=== PATIENT | female | born 1985 | race Caucasian/White ===

== ENCOUNTER 2023-12-26 10:40 | Emergency (ER) | payer OTHER, SELFPAY ==
[2023-12-26 10:46] VITALS: BP 116/66; PULSE 83; RESP 18; TEMP 36.9; O2SAT 98; BMI 31.2
--- NOTE | 2023-12-26 11:10 | ECG_ITS ---
[facility] Test Date: 2023-12-26 Pat Name: SHARI PLASCENCIA Department: Room: - Gender: Female [employer] Forming Machine Operator: : 1985 Requested By: RENEE BAUER Order Number: [id number] Reading MD: SRIDHAR TIWARI Measurements Intervals [place] Rate: 71 P: -13 SC: 116 QRS: 29 QRSD: 84 T: 28 QT: 368 QTc: 391 Interpretive Statements 1100 Sinus rhythm 2210 Short SC interval 9150 abnormal ECG No previous ECG available for comparison Electronically Signed On 12-26-2023 14:27:06 EST by SRIDHAR TIWARI
--- NOTE | 2023-12-26 11:10 | ED.FEMALEGU1 ---
HPI - Female Genitourinary General Chief complaint: Urogenital-Female Stated complaint: UROGENITAL-FEMALE/DIZZINESS Time Seen by Provider: 12/26/23 11:00 Source: patient Mode of arrival: walk-in History of Present Illness HPI Narrative[age] female presents for heavy vaginal bleeding and near-syncope. This period started two days ago and was much heavier than typical. Last night she had some severe low abdominal pains which wrapped around to her back bilaterally and she was sitting on the toilet and almost passed out. 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 She tried to get into see her [employer] today but was unable because they didn't have any appointments available. No fever, no vomiting. Related Data Home Medications Medication Instructions Recorded Confirmed levothyroxine 50 mcg tablet 50 mcg PO DAILY 12/26/23 12/26/23 paroxetine HCl 30 mg tablet 30 mg PO DAILY 12/26/23 12/26/23 Allergies Allergy/AdvReac Type Severity Reaction Status Date / Time venlafaxine [From Effexor] AdvReac Severe Hives Verified 12/26/23 10:52 IV contrast dye Allergy Severe Anaphylaxis Uncoded 12/26/23 10:52 Review of Systems ROS Narrative A ten point review of systems is negative except as noted above. Exam Narrative Exam Narrative: Nurses note and vital signs reviewed and patient is not hypoxic. General: The patient appears well and in no apparent distress. Patient is resting comfortably on cart. Skin: Warm, dry, slight pallor noted. There is no rash noted. Head: Normocephalic, atraumatic Eye: Normal conjunctiva, no drainage Ears, Nose, Mouth, and Throat: oral mucosa is moist. Nares patent. Cardiovascular: Regular Rate and Rhythm Respiratory: Patient is in no distress, no accessory muscle use, lungs are clear to auscultation, no wheezing, rales or rhonchi Back: non-tender GI: minimal tenderness in the left lower quadrant. The rest of her abdomen is nontender. Musculoskeletal: The patient has no evidence of calf tenderness, no pitting edema, symmetrical pulses noted bilaterally Neurological: A&O, normal speech Psychiatric: Cooperative Constitutional Vital Signs, click to edit/add: Last Vital Signs Temp 98.5 F 12/26/23 10:46 Pulse 83 12/26/23 10:46 Resp 18 12/26/23 10:46 BP 116/66 12/26/23 10:46 Pulse Ox 98 12/26/23 10:46 O2 Del Method Room Air 12/26/23 10:46 Course Vital Signs Vital signs: Vital Signs Temperature 98.5 F 12/26/23 10:46 Pulse Rate 83 12/26/23 10:46 Respiratory Rate 18 12/26/23 10:46 Blood Pressure 116/66 12/26/23 10:46 Pulse Oximetry 98 12/26/23 10:46 Oxygen Delivery Method Room Air 12/26/23 10:46 Temperature 98.5 F 12/26/23 10:46 Pulse Rate 83 12/26/23 10:46 Respiratory Rate 18 12/26/23 10:46 Blood Pressure 116/66 12/26/23 10:46 Pulse Oximetry 98 12/26/23 10:46 Oxygen Delivery Method Room Air 12/26/23 10:46 MDM - Female Genitourinary MDM Narrative Medical decision making narrative: she is not and has a hemoglobin of 12.8. Ultrasound shows nonspecific findings. She'll follow-up with her call center dispatcher and has an appointment in six days that she will keep. Treatment diagnosis and follow-up were discussed with the patient. Differential Diagnosis Differential diagnosis: Likely ruptured ovarian cyst, dysmenorrhea and other (, miscarriage, ectopic ) Lab Data Attestation: I reviewed the patient's lab results. Labs: Lab Results 12/26/23 Range/Units 11:20 WBC 5.2 (4.0-11.0) 10^3/uL RBC 4.28 (4.20-5.40) 10^6/uL Hgb 12.8 (12.0-16.0) g/dL Hct 37.7 (36.0-48.0) % MCV 88.1 (81.0-99.0) fL MCH 29.9 (26.7-34.0) pg MCHC 34.0 (29.9-35.2) g/dL RDW 12.1 (11.0-15.0) % Plt Count 189 (150-450) 10^3/uL MPV 11.1 (9.5-13.5) fL Neut % (Auto) 56.0 (43.0-75.0) % Lymph % (Auto) 26.7 (20.5-60.0) % [place] % (Auto) 15.7 H (1.7-12.0) % Eos % (Auto) 1.2 (0.9-7.0) % Baso % (Auto) 0.2 (0.2-2.0) % Neut # (Auto) 2.9 (1.4-6.5) 10^3/uL Lymph # (Auto) 1.4 (1.2-3.8) 10^3/uL [place] # (Auto) 0.8 (0.3-0.8) 10^3/uL Eos # (Auto) 0.1 (0.0-0.7) 10^3/uL Baso # (Auto) 0.0 (0.0-0.1) 10^3/uL Abs Immat Gran (auto) 0.01 (0.00-0.03) 10^3/uL Imm/Tot Granulo (auto) 0.2 (0.0-0.5) % Sodium 139 (136-145) mmol/L Potassium 3.9 (3.5-5.1) mmol/L Chloride 105 (98-107) mmol/L Carbon Dioxide 28.5 (21.0-32.0) mmol/L Anion Gap 9.4 BUN 22.0 H (7.0-18.0) mg/dL Creatinine 0.92 (0.55-1.02) mg/dL Est GFR ( Amer) >60 (>=60) Est GFR (Non-Af Amer) >60 (>=60) BUN/Creatinine Ratio 23.9 Glucose 94 (74-106) mg/dL Calcium 9.0 (8.5-10.1) mg/dL Serum HCG, Qual Negative (NEGATIVE) Imaging Data pelvic ultrasound: Radiologist's impression: ITS Impressions Transvaginal US 12/26/23 12:04 IMPRESSION: Mild degree of fluid within the endometrial canal which is nonspecific. Artifact versus small ill-defined soft tissue density in the endometrial canal. There may be a few small foci of blood in the endometrial region though difficult to say with certainty. Correlate to exclude any possibility of a very early live intrauterine gestation or findings related to residual from spontaneous . Short-term follow-up can be performed as needed. Electronically authenticated by: SARAH HOLM Date: 12/26/2023 12:57 Discharge Plan Discharge Chief Complaint: Urogenital-Female Clinical Impression: Dysfunctional uterine bleeding Patient Disposition: Home, Self-Care Time of Disposition Decision: 13:07 Condition: Good Mode of Transportation: Private Vehicle Prescriptions / Home Meds: No Action levothyroxine 50 mcg tablet 50 mcg PO DAILY paroxetine HCl 30 mg tablet 30 mg PO DAILY Instructions: Abnormal (Dysfunctional) Uterine Bleeding (ED) Additional Instructions: Follow-up with her call center dispatcher at her appointment Stand Alone Forms: Portal Instructions Referrals: RENEE BAUER [Primary Care Provider] - 1 week
[2023-12-26] MEDS: 0.9 % SODIUM CHLORIDE 1,000 ML 1000 ML IV (11:21)
[2023-12-26 11:50] LABS: Basophils Percent Auto 0.2 % (0.2-2.0); Eosinophils Absolute Auto 0.1 10^3/uL (0.0-0.7); Eosinophils Percent Auto 1.2 % (0.9-7.0); Hematocrit 37.7 % (36.0-48.0); Hemoglobin 12.8 g/dL (12.0-16.0); Immature Granulocytes Abs Auto 0.01 10^3/uL (0.00-0.03); Immature Granulocytes Pct Auto 0.2 % (0.0-0.5); Lymphocytes Absolute Auto 1.4 10^3/uL (1.2-3.8); Lymphocytes Percent Auto 26.7 % (20.5-60.0); Mean Corpuscular Hemoglobin 29.9 pg (26.7-34.0); Mean Corpuscular Volume 88.1 fL (81.0-99.0); Mean Platelet Volume 11.1 fL (9.5-13.5); Monocytes Absolute Auto 0.8 10^3/uL (0.3-0.8); Monocytes Percent Auto 15.7 % (1.7-12.0); Neutrophils Absolute Auto 2.9 10^3/uL (1.4-6.5); Platelet Count 189 10^3/uL (150-450); Red Blood Count 4.28 10^6/uL (4.20-5.40); Red Cell Distribution Width 12.1 % (11.0-15.0); White Blood Count 5.2 10^3/uL (4.0-11.0)
[2023-12-26 11:53] LABS: HCG Qualitative NEGATIVE (NEGATIVE)
[2023-12-26 11:55] LABS: Anion Gap 9.4; BUN Creatinine Ratio 23.9; Carbon Dioxide 28.5 mmol/L (21.0-32.0); Chloride 105 mmol/L (98-107); Estimated GFR (African America >60 (>=60); Estimated GFR (Non-African Ame >60 (>=60); Glucose 94 mg/dL (74-106); Potassium 3.9 mmol/L (3.5-5.1); Sodium 139 mmol/L (136-145)
--- NOTE | 2023-12-26 12:04 | US_ITS ---
[address] [address] Patient Name: SHARI PLASCENCIA MRN: [id number] date: 1985 Sex: F Assigned Patient Location: ER Current Patient Location: ER Accession/Order Number: [id number] Exam Date: 12/26/2023 12:11 Report Date: 12/26/2023 12:57 At the request of: RICHA WATTS Procedure: US pelvis transvaginal EXAM: US pelvis transvaginal HISTORY: heavy, irregular vaginal bleeding COMPARISON: None TECHNIQUE: Ultrasound study of the pelvis was performed with transvaginal imaging. FINDINGS: Uterus measures 8.4 x 5.2 x 4.2 cm in longitudinal, transverse and AP dimensions. Central endometrial echo complex measures 0.76 cm which is within normal limits. There is mild degree of fluid within the endometrial canal which is nonspecific. Artifact versus small ill-defined soft tissue density in the endometrial canal. A few tiny foci of increased attenuation in the endometrial region could represent blood though difficult to say with certainty. Correlate to exclude any possibility of a very early live intrauterine gestation or findings related to residual from spontaneous . Short-term follow-up can be performed as needed. Right ovary measures 4.0 x 2.6 x 2.4 cm, left ovary measures 2.6 x 1.5 x 1.1 cm. No obvious solid or cystic adnexal mass. No evidence to suggest ovarian torsion. US/US pelvis transvaginal IMPRESSION: Mild degree of fluid within the endometrial canal which is nonspecific. Artifact versus small ill-defined soft tissue density in the endometrial canal. There may be a few small foci of blood in the endometrial region though difficult to say with certainty. Correlate to exclude any possibility of a very early live intrauterine gestation or findings related to residual from spontaneous . Short-term follow-up can be performed as needed. Electronically authenticated by: SARAH HOLM Date: 12/26/2023 12:57
== END 2023-12-26 13:23 | disposition home or self-care (01) ==
PROVIDERS: Emergency Provider Emergency Medicine; PCP Family Medicine
DX: N93.8 Other specified abnormal uterine and vaginal bleeding (principal); Z79.899 Other long term (current) drug therapy; Z79.890 Hormone replacement therapy
CPT/HCPCS: 36415; 76830; 80048; 84703; 85025; 93005; 96360; 99285